=== PATIENT | female | born 1980 | race Caucasian/White ===

== ENCOUNTER 2024-06-19 02:21 | Emergency (ER) | payer OTHER, SELFPAY ==
[2024-06-19 02:23] VITALS: BP 150/100
[2024-06-19 02:36] VITALS: BMI 22.6
--- NOTE | 2024-06-19 02:55 | ED.GENMED ---
History of Present Illness
General
Chief Complaint: Crisis Evaluation
Source: patient and family
Exam Limitations: none
Time Seen by Provider: 06/19/24 02:23
Nursing documentation reviewed up to this point in time: agreed with
History of Present Illness
History of Present Illness:
43-year-old female presents to the emergency department with suicide attempt. She states that she attempted to d[place] herself in [place]. Patient admits to drinking alcoholic beverages and trying to d[place] herself in [place]. She
states that she passed out from the alcohol, and awakened and found herself in the water so she called 911. She denies any other ingestion other than alcohol. Denies any trauma. States that she has attempted suicide in the past with pills.
Review of Systems
Review of Systems
Allergies reviewed?: Yes
All Other Systems: ROS reviewed and negative except as documented in HPI and ROS
Psychiatric: Reports anxiety and suicidal
Phy Exam
General Physical Exam
General Presentation: well appearing and no apparent distress
General Skin: warm and dry
General Habitus: normal
General Mental: alert
General Hydration: appears well hydrated
ENT Exam
ENT Exam: EOMI, pharynx normal, neck supple and normocephalic
Eye Exam
Eye Exam: PERRL, cornea clear and conjunctiva normal
Cardiovascular Exam
Cardiovascular Exam: regular rate/rhythm, no edema, no murmur and normal peripheral pulses
Pulmonary Exam
Pulmonary Exam: lungs clear, no respiratory distress, no rales, no crackles, no rhonchi, no stridor, no wheezing and no cough
Gastrointestinal Exam
Gastrointestinal Exam: normal bowel sounds, non tender, soft, no organomegaly, no pulsatile mass and non distended
Neurological Exam
Neurological Exam: alert, oriented x3, no motor deficits and speech normal
Musculoskeletal Exam
Musculoskeletal Exam: full ROM and no edema
Skin Exam
Skin Exam: normal color, warm/dry, no rash and no petechia
Psychiatric Exam
Psychiatric Exam: anxious, depressed and suicidal
Course
Orders/Labs/Results
Orders:
Orders
06/19/24 02:34
1:1 Observation - Suicide/ Violent Behavior As Directed
06/19/24 02:38
Crisis Consult Urgent
Reason for Consult: suicide attempt
Test Result ONCE
06/19/24 03:09
Alcohol Urgent
Basic Metabolic Panel Urgent
COVID-19 Antigen Urgent
Source: Nasal Swab
Complete Blood Count/With Diff Urgent
HCG, Serum Qualitative Screen Urgent
Comment: Notify provider if positive test present
Urine Drug Abuse Screen Urgent
Date Specimen was Collected: 06/19/24
Time Specimen was Collected: 02:38
06/19/24 04:16
CR Chest - 2 Views Urgent
Comment:
Reason For Exam: possible aspiration
Abnormal Lab Results
06/19/24
03:09
MCH 31.9 H pg
(27.0-31.0)
Chloride 108 H mmol/L
(98-107)
06/19/24 03:09
06/19/24 03:09
Vital Signs
Initial and Last Documented VS:
Initial Vital Signs
Temp Pulse Resp BP Pulse Ox
97.7 F 116 18 150/100 100
06/19/24 02:23 06/19/24 02:23 06/19/24 02:23 06/19/24 02:23 06/19/24 02:23
Last Documented Vital Signs
Temp Pulse Resp BP Pulse Ox
97.7 F 116 18 122/86 100
06/19/24 02:23 06/19/24 02:23 06/19/24 02:23 06/19/24 04:03 06/19/24 02:23
*Critical Care Note
Total Time (30-74mins, 75-104mins- exclusive of procedures): Not Applicable
ED Attending Note
-
Portions of this chart may have been created with voice recognition software.� Occasional wrong word or��sound alike� substitutions may have occurred due to the inherent limitations of voice recognition software.
Discharge Plan
Departure
Patient Disposition: Psych Facility
Date of Disposition: 06/19/24
Time of Disposition: 04:21
Discharge Problem:
Suicide attempt, Depression
Prescriptions:
No Action
Trintellix 20 mg Tablet
20 mg PO DAILY
Rexulti 0.25 mg Tablet
0.25 mg PO DAILY
Referrals:
UNKNOWN - PT DOES,NOT KNOW [Family Provider] -
Interventions
Interventions:
*Risk Screen - Suicide Last Done: 06/19/24 02:23
*General Assessment Last Done: 06/19/24 02:23
*Neglect/Abuse Screening Last Done: 06/19/24 02:23
ED- Fall Risk Assessment Last Done: 06/19/24 03:00
*ED COVID-19 Vaccine History Last Done: 06/19/24 02:50
ED-Psychological Assessment Last Done: 06/19/24 02:36
Discharge Date and Time
Print Language: PORTUGUESE
[2024-06-19 03:21] LABS: % Basophils 0.8 % (0-2); % Eosinophils 1.6 % (0-6); % Immature Granulocytes 0.1 % (0-0.5); % Lymphocytes 23.1 % (20.5-51.1); % Monocytes 5.5 % (1.7-9.3); % Neutrophils 68.9 % (42.2-75.2); Absolute Basophils 0.1 10^3/uL (0-0.2); Absolute Eosinophils 0.1 10^3/uL (0-0.7); Absolute Monocytes 0.5 10^3/uL (0.1-0.6); Absolute Neutrophils 6.1 10^3/uL (1.4-6.5); Hematocrit 45.1 % (37.0-47.0); Hemoglobin 15.1 g/dL (12.0-16.0); Mean Corp Hgb Conc. 33.5 g/dL (33.0-37.0); Mean Corpuscular Hgb 31.9 pg (27.0-31.0); Mean Corpuscular Volume 95.3 fL (81.0-99.0); Mean Platelet Volume 10.3 fL (7.4-10.4); Nucleated Red Blood Cells % 0 %; Platelet Count 268 10^3/uL (130-400); Red Blood Cell Count 4.73 10^6/uL (4.20-5.40); White Blood Cell Count 8.8 10^3/uL (4.8-10.8)
[2024-06-19 03:38] LABS: HCG, Serum Qualitative Screen Negative
[2024-06-19 03:39] LABS: COVID-19 Antigen Negative (Negative)
[2024-06-19 03:47] LABS: Alcohol 140 mg/dl; Blood Urea Nitrogen 11 mg/dl (7-17); Calcium 9.5 mg/dl (8.4-10.2); Carbon Dioxide 22 mmol/L (22-30); Chloride 108 mmol/L (98-107); Estimated Creatinine Clearance 94 ml/min; Glucose 92 mg/dl (70-99); Potassium 4.3 mmol/L (3.5-5.1); Sodium 145 mmol/L (135-145); eGFR > 60.00
[2024-06-19 03:48] LABS: Amphetamines Negative (Negative); Barbiturates Negative (Negative); Benzodiazepines Negative (Negative); Buprenorphine Negative (Negative); Cocaine Negative (Negative); Marijuana Negative (Negative); Methadone Negative (Negative); Methamphetamines Negative (Negative); Opiates Negative (Negative); Phencyclidine Negative (Negative); Tricyclic Antidepressants Negative (Negative)
[2024-06-19 04:03] VITALS: BP 122/86
== END 2024-06-19 11:30 ==
LOC: EMR 02:21
PROVIDERS: EMERGENCY PHYSICIAN Student in an Organized Health Care Education/Training Program
DX: T14.91XA Suicide attempt, initial encounter (principal); X71.3XXA Intentional self-harm by drowning and submersion in natural water, initial encounter; F32.A Depression, unspecified; Z91.51 Personal history of suicidal behavior; Z11.52 Encounter for screening for COVID-19
CPT/HCPCS: 99285; 71046; 80048; 80306; 82077; 84703; 85025; 87811